=== PATIENT | male | born 1950 | race Caucasian/White ===

== ENCOUNTER → 2017-10-06 | Outpatient (CLI) | payer MEDICARE | END | disposition home or self-care (01) | LOC: CFH 13:02 | PROVIDERS: ATTEND Nurse Practitioner Family | DX: I35.8 Other nonrheumatic aortic valve disorders (principal); I63.9 Cerebral infarction, unspecified; I10 Essential (primary) hypertension; E78.5 Hyperlipidemia, unspecified | CPT/HCPCS: 93306 ==

== ENCOUNTER → 2017-10-18 | Outpatient (CLI) | payer MEDICARE | END | disposition home or self-care (01) | LOC: CFH 11:44 | PROVIDERS: ATTEND Nurse Practitioner Family | DX: I63.9 Cerebral infarction, unspecified (principal); I10 Essential (primary) hypertension; E78.5 Hyperlipidemia, unspecified | CPT/HCPCS: 78452; 93017; A9502 ==

== ENCOUNTER 2017-10-27 06:40 | Day surgery (SDC) | payer MEDICARE ==
[~2017-10-27] VITALS: Ht 157.5 cm; Wt 72.3 kg
[~2017-10-27 06:40] MED LIST: ATOR40TA78 PO; VERA240T86 PO; VERA40TA PO
[2017-10-27] MEDS ORDERED: SODIUM CHLORIDE 0.9% 1,000 ML IV SCH (07:04)
[2017-10-27] MEDS ORDERED: ASPI-650 PO (07:11)
[2017-10-27] MEDS ORDERED: ISOPROTERENOL 0.2MG/ML, 5ML ONE (08:11)
[2017-10-27] MEDS ORDERED: LIDOCAINE 2%, 50ML ONE (08:11)
[2017-10-27] MEDS ORDERED: FENTANYL PF 100 MCG/2ML ONE (08:11)
[2017-10-27] MEDS ORDERED: ADENOSINE 6 MG/2 ML ONE (08:11)
[2017-10-27] MEDS ORDERED: MIDAZOLAM 1 MG/ML, 2ML ONE (08:11)
[2017-10-27] MEDS ORDERED: ACETAMINOPHEN 325 MG TABLET PO PRN ×2 (09:30→14:00)
[2017-10-27] MEDS ORDERED: AMLO5TAB4 PO (12:50)
[2017-10-27] MEDS ORDERED: ACET325T14 PO (12:50)
[2017-10-27] MEDS ORDERED: ATORVASTATIN 40 MG TABLET PO SCH (21:00)
[2017-10-28] MEDS ORDERED: ASPIRIN 325 MG TABLET PO SCH (09:00)
[2017-10-28] MEDS ORDERED: AMLODIPINE 5 MG TABLET PO SCH (09:00)
== END 2017-10-27 18:04 | disposition home or self-care (01) ==
LOC: CACL 06:40 → 5SO 10:40 → CACL 18:04
PROVIDERS: ATTEND Internal Medicine Cardiovascular Disease
DX: I47.1 Supraventricular tachycardia (principal); I10 Essential (primary) hypertension; E78.5 Hyperlipidemia, unspecified; Z79.899 Other long term (current) drug therapy; Z79.82 Long term (current) use of aspirin; Z86.73 Personal history of transient ischemic attack (TIA), and cerebral infarction without residual deficits
CPT/HCPCS: 36415; 71046; 80053; 85025; 85610; 85730; 93613; 93621; 93623; 93653; 99156; 99157; C1730; C1894; C2630; J2250; J3010; J0153

== ENCOUNTER 2017-12-05 09:19 | Day surgery (SDC) | payer MEDICARE ==
[~2017-12-05] VITALS: Ht 157.5 cm; Wt 76.4 kg
[~2017-12-05 09:19] MED LIST changes: +ACET325T14 PO; +AMLO5TAB4 PO; +ASPI-650 PO
[2017-12-05 10:02] VITALS: BP 126/82
[2017-12-05] MEDS ORDERED: LIDOCAINE-MPF 2% ,5ML ONE (12:03)
== END 2017-12-05 13:33 | disposition home or self-care (01) ==
LOC: CACL 09:19
PROVIDERS: ATTEND Internal Medicine Cardiovascular Disease
DX: Z45.09 Encounter for adjustment and management of other cardiac device (principal); I63.9 Cerebral infarction, unspecified; I47.1 Supraventricular tachycardia; I10 Essential (primary) hypertension; E78.2 Mixed hyperlipidemia; Z79.82 Long term (current) use of aspirin; Z79.899 Other long term (current) drug therapy
CPT/HCPCS: 33282; C1764; J3490

== ENCOUNTER 2018-10-24 09:51 | Day surgery (SDC) | payer MEDICARE ==
[~2018-10-24] VITALS: Ht 157.5 cm; Wt 65.0 kg
== END 2018-10-24 12:10 | disposition home or self-care (01) ==
LOC: CACL 09:51
PROVIDERS: ATTEND Internal Medicine Cardiovascular Disease
DX: Z45.09 Encounter for adjustment and management of other cardiac device (principal); I48.91 Unspecified atrial fibrillation; I10 Essential (primary) hypertension; Z79.82 Long term (current) use of aspirin; Z86.73 Personal history of transient ischemic attack (TIA), and cerebral infarction without residual deficits
CPT/HCPCS: 33286